=== PATIENT | female | born 1965 | race Caucasian/White ===

== ENCOUNTER 2018-08-26 13:15 | Emergency (ER) | payer OTHER ==
[~2018-08-26] VITALS: Ht 165.1 cm; Wt 105.2 kg
[2018-08-26 13:21] VITALS: BP_SYST 136
[2018-08-26] MEDS ORDERED: NACL 0.9% 1,000 ML IV ONE (14:31)
--- NOTE | 2018-08-26 14:32 | NUR ---
Patient to ER bed 4 to gown for evaluation. Side rails up. Report given to Harrison LEMUS.
--- NOTE | 2018-08-26 14:35 | NUR ---
Pt presents to ER c/o L neck / throat pain after eating chicken and rice for lunch. Pt reports sharp pain when she swallows and thinks she may have swallowed a chicken bone. Pt reports blood tinged sputum after coughing. Pt reports pain 10/10. Pt AOX4, speaking full sentences, ambulatory, no signs of acute distress.
--- NOTE | 2018-08-26 14:40 | NUR ---
Hill alfredo in ED - 08/26/18 at 1636 by [email or web address] HEAVEN Shannon at bedside examining patient.
--- NOTE | 2018-08-26 14:40 | NUR ---
# 20 gauge angiocath placed to L FOREARM. Use of asceptic technique. Opsite placed over site. Blood return noted. Blood for lab drawn from site. Flushed with 10 cc of normal saline. No evidence of infiltration noted. Patient tolerated well.
--- NOTE | 2018-08-26 14:40 | NUR ---
ER at bedside examining patient.
[2018-08-26] MEDS ORDERED: ONDANSETRON HCL 4 MG/2 ML VIAL IVP ONE (14:45)
[2018-08-26] MEDS ORDERED: MORPHINE 2 MG/ML INJ. SYRINGE IVP ONE (14:45)
[2018-08-26 14:50] LABS: BASOPHILS % (AUTO) 0.8 % (0.0-2.0); EOSINOPHILS # (AUTO) 0.1 K/uL (0.0-0.4); EOSINOPHILS % (AUTO) 2.2 % (0.0-4.0); HEMATOCRIT 44.1 % (36-48); HEMOGLOBIN 14.3 g/dL (12.0-16.0); LYMPHOCYTES # (AUTO) 1.3 K/uL (1.0-5.5); LYMPHOCYTES % (AUTO) 21.2 % (20.5-51.5); MEAN CORPUSCULAR HEMOGLOBIN 29 pg (27-31); MEAN CORPUSCULAR HGB CONC 32 % (32-36); MEAN CORPUSCULAR VOLUME 88 fL (79.0-98.0); MONOCYTES # (AUTO) 0.3 K/uL (0.0-1.0); NEUTROPHILS # (AUTO) 4.3 K/uL (1.8-7.7); NEUTROPHILS % (AUTO) 70.8 % (40.0-70.0); PLATELET COUNT (AUTO) 170 K/uL (130-430); RED BLOOD CELL COUNT(AUTO) 4.99 MIL/uL (4.2-6.2); RED CELL DISTRIBUTION WIDTH 11.7 % (9.0-15.0)
[2018-08-26] MEDS ORDERED: ASA81 PO (15:04)
[2018-08-26] MEDS ORDERED: METO25TA3 PO (15:04)
--- NOTE | 2018-08-26 15:05 | NUR ---
Medication reconciliation completed with information provided by pt. Any prior medication reconciliation on file was reviewed and corrected.
[2018-08-26 15:08] LABS: CALCIUM 9.4 mg/dL (8.4-11.0); CREATININE 0.75 mg/dL (0.55-1.30); POTASSIUM 3.6 mmol/L (3.5-5.1)
[2018-08-26 15:12] LABS: INR 1.1 (0.8-1.2); PROTHROMBIN TIME 10.9 SECS (9.5-12.5)
[2018-08-26 15:13] LABS: ALBUMIN 3.9 g/dL (3.4-4.8); TOTAL BILIRUBIN 0.5 mg/dL (0.0-1.0)
--- NOTE | 2018-08-26 15:16 | NUR ---
Radiology at bedside.
[2018-08-26] MEDS ORDERED: MORPHINE 4 MG/ML INJ. SYRINGE IVP ONE (16:00)
--- NOTE | 2018-08-26 16:05 | NUR ---
Dr. Layton at bedside speaking with pt discussing plan to transfer pt to [facility].
[2018-08-26 16:25] VITALS: BP_SYST 124
[2018-08-26 16:25] LABS: BILIRUBIN,URINE NEGATIVE (NEGATIVE); BLOOD, URINE NEGATIVE (NEGATIVE); CLARITY/URINE HAZY (CLEAR); COLOR,URINE YELLOW (YELLOW); GLUCOSE,URINE NEGATIVE (NEGATIVE); KETONES,URINE NEGATIVE (NEGATIVE); LEUKOCYTE ESTERASE ,URINE TRACE (NEGATIVE); NITRITE, URINE NEGATIVE (NEGATIVE); PROTEIN URINE NEGATIVE (NEGATIVE); UROBILINOGEN,URINE 0.2 (0.2-1.0)
--- NOTE | 2018-08-26 16:25 | NUR ---
Patient to be transferred to [facility] ER. Is being transferred due to higher level of care. Receiving facility has accepting physician and available space. ER physician has signed transfer form. Patient or responsible green party has agreed to transfer and signed form. Patient belongings inventoried and will be sent with patient. Copy of nursing notes, lab reports, EKG, Physicians Orders and X-rays to be sent with patient. Report called to Lissette at receiving facility. Receiving physician is Dr. Wong. [facility] service has been called for transfer. ETA is [id number].
[2018-08-26 16:54] LABS: BACTERIA,URINE MODERATE /HPF (None Seen); MUCUS,URINE 1+ /LPF (None Seen); RBC,URINE 0-3 /HPF (0-3)
== END 2018-08-26 16:25 | disposition short-term general hospital (02) ==
LOC: SED 13:15
DX: T18.128A Food in esophagus causing other injury, initial encounter (principal); X58.XXXA Exposure to other specified factors, initial encounter; Y93.89 Activity, other specified; Y92.89 Other specified places as the place of occurrence of the external cause; Y99.8 Other external cause status
CPT/HCPCS: 36415; 70490; 71045; 80053; 81000; 85025; 85610; 85730; 87086; 93005; 96361; 96374; 96375; 99285; J2270 ×2; J2405; J7030